=== PATIENT | male | born 1985 | race Caucasian/White ===

== ENCOUNTER 2024-09-11 16:09 | Emergency (ER) | payer MEDICARE, MEDICAID, SELFPAY ==
[2024-09-11 16:10] VITALS: BP 147/81; PULSE 104; RESP 20; TEMP 36.7; O2SAT 92
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
--- NOTE | 2024-09-11 16:30 | DI.RAD_ITS ---
Exam(s) XR KNEE LT 3V AP,LAT,TODD EXAM: XR KNEE LT 3V AP,LAT,TODD CLINICAL HISTORY: Left knee pain. TECHNIQUE: 2D digital imaging was performed of the left knee. Three images were obtained. Merchant ,AP, lateral and PA tunnel views were obtained. COMPARISON: No exams were available for comparison FINDINGS: BONES: No acute fracture is present. No bony destructive lesion is seen. JOINTS: The knee is normally aligned. No joint effusion is seen. No loose body. SOFT TISSUE: Normal. IMPRESSION: No acute fracture or dislocation. DATA REPOSITORY: RADIATION DOSE DELIVERED:
[2024-09-11 16:41] VITALS: PULSE 85; O2SAT 94
[2024-09-11] MEDS: Dexamethasone 4 MG TAB 8 MG PO (16:49)
[2024-09-11 17:30] VITALS: BP 137/78; PULSE 89; RESP 20; TEMP 36.8; O2SAT 98
--- NOTE | 2024-10-07 13:05 | NUR.NOTE ---
Accessed patient chart to print provider note to be faxed to [facility] for billing purposes. Nursing Note:
== END 2024-09-11 17:44 | disposition home or self-care (01) ==
PROVIDERS: Emergency Provider Emergency Medicine
DX: M25.562 Pain in left knee (principal)
CPT/HCPCS: 29505; 73562; 99283; J8540

== ENCOUNTER 2024-09-29 13:07 | Emergency (ER) | payer MEDICARE, MEDICAID, SELFPAY ==
[2024-09-29 13:16] VITALS: BP 149/82; PULSE 78; RESP 18; TEMP 36.8
[2024-09-29 13:18] VITALS: BP 149/82; PULSE 78; RESP 18; TEMP 36.8
--- NOTE | 2024-09-29 14:02 | DI.CT_ITS ---
Exam(s) CT NECK W EXAM: CT NECK W INDICATION: L sided lymph node swelling, sore throat. COMPARISON: No exams were available for comparison TECHNIQUE: FINDINGS: VISUALIZED PARANASAL SINUSES: Polyp or post inflammatory retention cyst in the anterior aspect of the right maxillary sinus noted, measuring 1.4 cm wide by 0.8 cm and not associated with fluid within si nus. No other paranasal sinus findings and there are no mastoid effusions. NASOPHARYNX: Unremarkable ORODENTAL: Upper teeth missing. OROPHARYNX: Abnormal fullness in the left pharyngeal tonsil region with a few calcified tonsilliths. There does not appear to be ring-enhancing abscess in this region but suspect developing left tonsil lar abscess. HYPOPHARYNX: Unremarkable. Valleculae and epiglottis and aryepiglottic folds appear normal. VOCAL CORDS: Unremarkable. No masses evident. Subglottic airway appears unremarkable. THYROID GLAND: Unremarkable. Normal size and no obvious nodules. SALIVARY GLANDS: Unremarkable. No significant findings in the parotid and submandibular glands. LYMPH NODES: There few slightly prominent lymph nodes both sides the neck all measuring less than 1 c m and probably reactive. OTHER: Lower most images of this study reveal no endovascular stent in the thoracic aorta starting in the proximal descending thoracic aorta and extending distally beyond the field of view of this study . In addition, there is a healed fracture of the left clavicle at junction of the mid and lateral third s. Also healed fracture of the medial aspect of the right 2nd rib, posteriorly. Also healed fractur e of the posterolateral aspect of the right 4th rib. VISUALIZED LUNG APICES: No significant findings. IMPRESSION: 1. There is soft tissue swelling in the region the left pharyngeal tonsil and sub tonsillar region. Suspect developing abscess despite fact that there is no ring enhancing abnormality at this time. 2. Slightly enlarged lymph nodes both sides the neck which are probably reactive. 3. Other findings as above Called by myself to ER provider 09/29/2024 at 4:51 p.m. RADIATION DOSE DELIVERED: 518.52mGy.cm Total DLP DATA REPOSITORY: All CT scans at this facility are submitted to the National Radiology Data Registry (NRDR) Dose Index Registry (DIR) with the [employer] (ACR). RADIATION OPTIMIZATION: All CT scans at this facility use at least one of these dose optimization te chniques: automated exposure control; mA and/or kV adjustment per patient size (includes targeted exa ms where dose is matched to clinical indication); or iterative reconstruction.
--- NOTE | 2024-09-29 14:03 | ED.GENADUL_ITS ---
Discharge Plan Discharge Details Chief Complaint: Sorethroat Primary Care Provider: None,None ED Provider: Darcy Victoria Home Meds and New Rx's Prescriptions: No Action buprenorphine-naloxone 8-2 mg tablet, sublingual 3 tab sublingual DAILY lisinopril 20 mg tablet 20 mg PO DAILY HPI General Date/Time Provider Initiated Documentation: 09/29/24 13:22 . HPI Narrative: Miguel is a 39 year old male who presents to the emergency department today for evaluation of worsening left-sided neck swelling, sore throat, and left ear discomfort x 3-4 days. Reports symptoms started with sore throat in the absence of other viral symptoms, recently noticed swelling to the left side of his neck and a swollen lymph node today developed left ear discomfort and painful swallowing. Denies associated fever/chills, dysphonia, difficulty moving his neck, recent trauma, symptoms of illness such as congestion or cough. Former tobacco smoker. Past medical history is significant for HTN. Physical exam remarkable for palpable enlarged and tender L sided submandibular lymph node. Notable area of swelling and erythema to L side of anterior neck. Posterior oropharynx difficult to visualize, however uvula did appear midline and there was no exudate noted on tonsils full ROM of neck. No trismus or muffled voice. TMs translucent, mild erythema to L TM but no bulging or fluid behind TM. D/dx includes but is not limited to: early peritonsillar retropharyngeal abscess, strep throat, viral pharyngitis, neoplasm. No red flags at this time for airway compromise. Patient does not meet sepsis criteria. I independently interpreted the following tests: CBC, CMP, and rapid strep all reassuring. Handoff report given to BASIM Harper, evening DAVID. CT pending. Related Data Home Medications ?Medication ?Instructions ?Recorded ?Confirmed buprenorphine 8 mg-naloxone 2 mg 3 tab sublingual DAILY 09/11/24 09/11/24 sublingual tablet lisinopril 20 mg tablet 20 mg PO DAILY 09/11/24 09/11/24 Allergies Allergy/AdvReac Type Severity Reaction Status Date / Time lidocaine Allergy Severe Hives Verified 09/11/24 16:15 General Stated Complaint: Sorethroat IVANA: 3 Review of Systems Narrative: See HPI Exam Const General: cooperative, healthy appearing, comfortable, no acute distress and well developed Nutritional Appearance: average body habitus and well nourished Orientation: alert and oriented x3 HENMT Head: normal to inspection Ears: hearing grossly normal bilaterally, TM normal on the right and TM abnormal (Very mild erythema, no bulging or fluid) General nose exam: external nose normal Face and sinus: normal facial exam Mouth: oral mucosae normal and tongue normal Throat: posterior oropharynx normal and uvula midline Neck Neck: full ROM, anterior neck swelling (With erythema to the left side of neck) and lymphadenopathy left anterior cervical soft, rubbery and other (1.5 cm diameter, round) Resp Effort & Inspection: normal respiratory effort and able to speak in complete sentences Neuro Cranial Nerves: facial strength normal Course Vital Signs Vital signs: Vital Signs Temperature 36.8 C 09/29/24 13:16 Pulse 78 09/29/24 13:16 Respiratory Rate 18 09/29/24 13:16 Blood Pressure 149/82 H 09/29/24 13:16 Temperature 36.8 C 09/29/24 13:18 Temperature Source Tympanic 09/29/24 13:18 Pulse 78 09/29/24 13:18 Respiratory Rate 18 09/29/24 13:18 Blood Pressure 149/82 H 09/29/24 13:18 Blood Pressure Position Supine 09/29/24 13:18 Medical Decision Making Quality:SDOH Health Related Social Needs: No Data to Display PFSH All Active Problems (Updated 09/11/24 @ 17:20 by Slade Junior MD) Acute pain of left knee (Acute) Social History Smoking/Tobacco Use Status: Current every day Tobacco Type: e-cigarettes Smoking risk assessment performed?: Yes Alcohol Intake: former Drug use: Daily Substance use type: marijuana
[2024-09-29 14:58] LABS: Abs Immature Grans 0.01 10^3/uL (0.0-0.06); Absolute Basophil Count 0.03 10^3/uL (0.0-0.2); Absolute Eosinophil Count 0.34 10^3/uL (0.0-0.7); Absolute Lymphocyte Count 2.77 10^3/uL (1.2-3.4); Absolute Monocyte Count 0.43 10^3/uL (0.1-0.8); Absolute Neutrophil Count 2.88 10^3/uL (1.2-6.7); Basophils % 0.5 %; Eosinophils % 5.3 %; HCT 41.7 % (40.0-50.0); HGB 13.9 g/dL (13.5-17.5); Immature Grans % 0.2 %; Lymphocytes % 42.9 %; MCH 31.5 pg (27.0-33.0); MCHC 33.3 % (32.0-36.0); MCV 95 fL (80-95); MPV 9.3 fL (8.0-11.0); Monocytes % 6.7 %; Neutrophils % 44.4 %; Platelet Count 167 10^3/uL (130-400); RBC 4.41 10^6/uL (4.36-5.78); RDW 13.7 % (11.8-14.1); RDW-SD 48.2 fL; WBC 6.46 10^3/uL (4.4-10.8)
[2024-09-29 15:13] LABS: ALT 37 U/L (16-63); AST 17 U/L (15-37); Alkaline Phosphatase 88 U/L (46-116); Anion Gap 3.8 mmol/L (3-11); BUN 8 mg/dL (7-18); Bilirubin, Total 0.4 mg/dL (0.2-1.0); CO2 30.2 mmol/L (21.0-32.0); CREATININE 0.8 mg/dL (0.70-1.30); Calcium 9.2 mg/dL (8.5-10.1); Chloride 104 mmol/L (98-107); Estimated GFR 114.02 (mL/min/1.73m2); Glucose 98 mg/dL (74-106); Potassium 4.5 mmol/L (3.5-5.1); Sodium 138 mmol/L (136-145); Total Protein 7.5 g/dL (6.4-8.2)
[2024-09-29] MEDS: Normal Saline - Diluent 50 ML VIAL IJ (16:14)
[2024-09-29] MEDS: Omnipaque 350 MG/ML 100 ML BTL IJ (16:15)
--- NOTE | 2024-09-29 16:57 | W.EDPROG ---
Date of service: 09/29/24 Time of Service: 16:57 Medical Decision Making This dictation utilizes [id number] dictation software and may contain unedited grammatical errors. Patient seen in signout from Darcy Haley NP, please see her complete note. Essentially this 39 y/o M presents to the ED for left-sided throat and neck pain for 3 to 4 days with submandibular swelling noted by prior provider on exam awaiting CT neck with contrast, labs are reassuring without major leukocytosis, CMP benign, rapid strep negative, patient has diffuse poor dentition, no vocal changes or excessive drooling or neck stiffness noted by prior provider. Patients' medical history: [ ]. Family and social history: [ ]. Pertinent exam findings / vital signs include [ ]. Differential / pathologies of concern include [ ]. Diagnostic studies of: -Reviewed prior labs - all negative for actionable abnormalities as seen below. -CT neck results and spoke with radiologist Dr. Melgar- suspects phlegmon forming Interventions of: -Will load with IV Unasyn & Dexamethasone, Rx for Augmentin, Rx for chlorhexidine mouth rinse. ED Course/Assessment/Plan: 39-year-old male seen for left tonsillar swelling and a sore throat for the past 3 to [address], CT shows questionable developing abscess or phlegmonous tonsillitis but no overt abscess at this time, I counseled the patient on course of Augmentin, loaded him on IV Unasyn and dexamethasone, counseled him extensively on red flags for return he verbalized understanding, I did prescribe him chlorhexidine mouth rinse as well and recommend salt water gargles and therapeutic dosing of Tylenol and ibuprofen. Findings not consistent with [employer]/RPA, nuchal rigidity, sialoadenitis or salivary obstruction. Disposition of Phlegmonous Tonsillitis Patient verbalized understanding of the plan and return to ED criteria and engaged in shared decision making. Medical Records Medical records reviewed: Yes I reviewed the patient's medical records. Imaging Data Radiologic Study: Attestation: I personally reviewed and interpreted this imaging study as follows: Imaging: CT Scan Radiologist's impression: EXAM: CT NECK W INDICATION: L sided lymph node swelling, sore throat. COMPARISON: No exams were available for comparison TECHNIQUE: FINDINGS: VISUALIZED PARANASAL SINUSES: Polyp or post inflammatory retention cyst in the anterior aspect of the right maxillary sinus noted, measuring 1.4 cm wide by 0.8 cm and not associated with fluid within sinus. No other paranasal sinus findings and there are no mastoid effusions. NASOPHARYNX: Unremarkable ORODENTAL: Upper teeth missing. OROPHARYNX: Abnormal fullness in the left pharyngeal tonsil region with a few calcified tonsilliths. There does not appear to be ring-enhancing abscess in this region but suspect developing left tonsillar abscess. HYPOPHARYNX: Unremarkable. Valleculae and epiglottis and aryepiglottic folds appear normal. VOCAL CORDS: Unremarkable. No masses evident. Subglottic airway appears unremarkable. THYROID GLAND: Unremarkable. Normal size and no obvious nodules. SALIVARY GLANDS: Unremarkable. No significant findings in the parotid and submandibular glands. LYMPH NODES: There few slightly prominent lymph nodes both sides the neck all measuring less than 1 cm and probably reactive. OTHER: Lower most images of this study reveal no endovascular stent in the thoracic aorta starting in the proximal descending thoracic aorta and extending distally beyond the field of view of this study. In addition, there is a healed fracture of the left clavicle at junction of the mid and lateral thirds. Also healed fracture of the medial aspect of the right 2nd rib, posteriorly. Also healed fracture of the posterolateral aspect of the right 4th rib. VISUALIZED LUNG APICES: No significant findings. IMPRESSION: 1. There is soft tissue swelling in the region the left pharyngeal tonsil and sub tonsillar region. Suspect developing abscess despite fact that there is no ring enhancing abnormality at this time. 2. Slightly enlarged lymph nodes both sides the neck which are probably reactive. 3. Other findings as above Called by myself to ER provider 09/29/2024 at 4:51 p.m. Lab Data Lab results reviewed: Yes I reviewed the patient's lab results. Lab results narrative: Rapid Strep negative Labs: 09/29/24 14:05 Pharynx Group A Streptococcus Culture - Pending Laboratory Tests Range/Units 09/29/24 14:51 WBC (4.4-10.8) 10^3/uL 6.46 RBC (4.36-5.78) 10^6/uL 4.41 Hgb (13.5-17.5) g/dL 13.9 Hct (40.0-50.0) % 41.7 MCV (80-95) fL 95 MCH (27.0-33.0) pg 31.5 MCHC (32.0-36.0) % 33.3 RDW (11.8-14.1) % 13.7 Plt Count (130-400) 10^3/uL 167 MPV (8.0-11.0) fL 9.3 Immature Gran % % 0.2 Neutrophils % % 44.4 Lymphocytes % % 42.9 Monocytes % % 6.7 Eosinophils % % 5.3 Basophils % % 0.5 Nucleated RBC % (0.0-0.3) % 0.0 Absolute Neutrophils (1.2-6.7) 10^3/uL 2.88 Absolute Lymphocytes (1.2-3.4) 10^3/uL 2.77 Absolute Monocytes (0.1-0.8) 10^3/uL 0.43 Absolute Eosinophils (0.0-0.7) 10^3/uL 0.34 Absolute Basophils (0.0-0.2) 10^3/uL 0.03 Sodium (136-145) mmol/L 138 Potassium (3.5-5.1) mmol/L 4.5 Chloride (98-107) mmol/L 104 Carbon Dioxide (21.0-32.0) mmol/L 30.2 Anion Gap (3-11) mmol/L 3.8 BUN (7-18) mg/dL 8 Creatinine (0.70-1.30) mg/dL 0.8 Est GFR (CKD-EPI 2020) (mL/min/1.73m2) 114.02 Glucose (74-106) mg/dL 98 Calcium (8.5-10.1) mg/dL 9.2 Total Bilirubin (0.2-1.0) mg/dL 0.4 AST (15-37) U/L 17 ALT (16-63) U/L 37 Alkaline Phosphatase (46-116) U/L 88 Total Protein (6.4-8.2) g/dL 7.5 Albumin (3.4-5.0) g/dL 4.0 Quality:SDOH Health Related Social Needs: No Data to Display Discharge Plan Disposition Patient Disposition: Home Condition: Stable Discharge Details Clinical Impression: Phlegmonous tonsillitis Primary Care Provider: None,None ED Provider: Juno Peck Home Meds and New Rx's Prescriptions: New amoxicillin-pot clavulanate 875-125 mg tablet 1 tab PO BID 14 Days Qty: 28 0RF chlorhexidine gluconate 0.12 % mouthwash 15 ml mucous membrane BID Qty: 1893 0RF Rx Instructions: swish and spit with 15mL by mouth twice per day Continued buprenorphine-naloxone 8-2 mg tablet, sublingual 3 tab sublingual DAILY lisinopril 20 mg tablet 20 mg PO DAILY Discharge Instructions Instructions: Peritonsillar Abscess, Adult, Amoxicillin and Clavulanate, Chlorhexidine Gluconate (Oral), Sore Throat, Adult ED Additional Instructions: You were seen in the emergency department for your left tonsillar infection, there is suspicion for a possibility of developing peritonsillar abscess which can be a surgical emergency. There is no abscess at this time though. I have loaded you with IV antibiotics, I have sent a prescription to [facility] in [place], start this oral antibiotic tonight before bed. We also gave you a dose of IV steroids to help with inflammation. Please use therapeutic dosing of Tylenol (acetamenophen) & Advil (ibuprofen) in an alternating fashion as follows: Take 1000mg of Tylenol every 6 hours without missing doses- that is 4 times per day. [facility] in between the Tylenol dosings, take 400-600mg of Advil also on a 6 hour schedule, that is also 4 times per day. The daily maximum dosing of Tylenol is 4000mg, and the daily maximum dosing of Advil is 2400mg. This is safe to do for weeks. Please note that some common cold medications & prescription pain medications may contain acetamenophen and you need to read OTC drug labels and factor that in to maximum daily dosings. Please perform salt water gargles with warm salt water at least 3 times per day. Emergent signs to watch for include worsening neck stiffness, severe vocal changes and hoarseness or hot potato voice, excessive drooling and inability to manage your saliva, displacement of the uvula away from your left tonsil at the back of your throat, please return immediately for any of the symptoms. Referrals: [facility] [Provider Group] Discharge Data Discharge Date/Time-TO BE ENTERED AT DEPARTURE: 09/29/24 18:01
[2024-09-29] MEDS: AMPICILLIN/SULBACTAM 3 GM in Normal Saline 100 ML IVPB (17:16)
[2024-09-29] MEDS: Acetaminophen 500 MG TAB 1000 MG PO (17:17)
[2024-09-29] MEDS: Ibuprofen 400 MG TAB PO (17:17)
[2024-09-29] MEDS: Dexamethasone 10 MG/ML VIAL IVP (17:17)
[2024-09-29 17:25] VITALS: BP 130/72; PULSE 70; RESP 16; O2SAT 97
[2024-09-29 17:59] VITALS: BP 137/79; PULSE 69; RESP 16; O2SAT 95
== END 2024-09-29 18:01 | disposition home or self-care (01) ==
PROVIDERS: Nurse Practitioner Family; Emergency Provider Physician Assistant
DX: J03.90 Acute tonsillitis, unspecified (principal)
CPT/HCPCS: 99284; 99285; 87880; 96375; 00123; 70491; 80053; 96365; 85025; 87081; J0295; J1100; J3490

== ENCOUNTER 2024-11-11 12:08 | Emergency (ER) | payer MEDICARE, MEDICAID, SELFPAY ==
[2024-11-11] VITALS (27 sets, daily range): BP systolic 93–126; BP diastolic 71–95; PULSE 64–106; RESP 11–20; TEMP 36.6; O2SAT 91–98
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
[2024-11-11 13:06] LABS: Abs Immature Grans 0.01 10^3/uL (0.0-0.06); Absolute Basophil Count 0.03 10^3/uL (0.0-0.2); Absolute Eosinophil Count 0.37 10^3/uL (0.0-0.7); Absolute Lymphocyte Count 2.54 10^3/uL (1.2-3.4); Absolute Monocyte Count 0.39 10^3/uL (0.1-0.8); Absolute Neutrophil Count 2.51 10^3/uL (1.2-6.7); Basophils % 0.5 %; Eosinophils % 6.3 %; HCT 39.2 % (40.0-50.0); HGB 13.6 g/dL (13.5-17.5); Immature Grans % 0.2 %; Lymphocytes % 43.4 %; MCH 31.9 pg (27.0-33.0); MCHC 34.7 % (32.0-36.0); MCV 92 fL (80-95); MPV 9.6 fL (8.0-11.0); Monocytes % 6.7 %; Neutrophils % 42.9 %; Platelet Count 165 10^3/uL (130-400); RBC 4.26 10^6/uL (4.36-5.78); RDW 12.9 % (11.8-14.1); RDW-SD 43.5 fL; WBC 5.85 10^3/uL (4.4-10.8)
[2024-11-11 13:23] LABS: ALT 47 U/L (16-63); AST 30 U/L (15-37); Albumin 4.2 g/dL (3.4-5.0); Alkaline Phosphatase 79 U/L (46-116); BUN 13 mg/dL (7-18); Bilirubin, Total 0.4 mg/dL (0.2-1.0); CREATININE 0.9 mg/dL (0.70-1.30); Calcium 8.7 mg/dL (8.5-10.1); Chloride 101 mmol/L (98-107); Estimated GFR 110.04 (mL/min/1.73m2); Glucose 106 mg/dL (74-106); Magnesium 1.8 mg/dL (1.8-2.4); Potassium 4.1 mmol/L (3.5-5.1); Sodium 136 mmol/L (136-145); Total Protein 7.4 g/dL (6.4-8.2)
--- NOTE | 2024-11-11 13:46 | DI.CT_ITS ---
Exam(s) CT ABDOMEN PELVIS CTA EXAM: CT ABDOMEN PELVIS CTA CLINICAL HISTORY: GI Bleed. TECHNIQUE: Imaging Protocol: Axial computed tomography images with coronal and sagittal reformatted images were created and reviewed CONTRAST MATERIAL: Intravenous: Omnipaque 350 Contrast volume:100 ml Oral: None COMPARISON: No exams were available for comparison FINDINGS: Uppermost images reveal no pleural effusions nor nodular infiltrates in the lung bases. AORTA: The inferior aspect of a stent device in the lower thoracic aorta is noted.There is no evidenc e of abdominal aortic aneurysm. No evidence of abdominal aortic dissection nor significant stenosis. Retroaortic left renal vein is noted. Celiac and SMA arteries are patent without significant steno sis. The inferior mesenteric artery is patent. There is no significant stenosis in the renal arteri es. No significant atherosclerotic narrowing nor dissection of the iliac arteries and no aneurysmal dilatation of these vessels nor of the common femoral arteries bilaterally. ABDOMEN: GASTROINTESTINAL: There is no evidence of bowel obstruction, free air, nor abscess. No evidence of a ppendicitis nor acute diverticulitis. There is no evidence of intraluminal extravasation of injected intravenous contrast to suggest an acute bleeding site. There is no ascites. LIVER: Somewhat hypodense implying steatosis. There no discrete focal hepatic lesions identified. GALLBLADDER/BILIARY: No obvious gallbladder pathology. CBD is not dilated. PANCREAS: No evidence of pancreatic mass nor dilatation of the pancreatic duct. SPLEEN: Spleen is not enlarged. There are no intrasplenic lesions. Splenic and portal veins are boyle nt. ADRENALS: No significant adrenal masses. KIDNEYS: There is a benign cyst in the posterior cortex of the right kidney measuring 2 cm which does not require further workup. There are no solid renal masses nor calculi nor hydronephrosis on eithe r side. No hydroureter. There is no obvious abnormality in the nondistended urinary bladder.. ABDOMINAL AORTA: See above LYMPH NODES: There is no retroperitoneal nor para-aortic adenopathy. No obvious mesenteric masses. ABDOMINAL WALL: No evidence of significant anterior abdominal wall hernia. GI: There is no evidence of bowel obstruction, free air, nor abscess. PELVIS: LYMPH NODES: There is no intrapelvic nor inguinal adenopathy. GI: No evidence of appendicitis.No evidence of sigmoid diverticulitis. URINARY BLADDER: No calculi nor masses evident REPRODUCTIVE: Prostate size is normal. Seminal vesicles unremarkable. OSSEOUS: No significant osseous lesions. There is a wedge compression fracture of T11 which does not have an acute appearance. No canal compromise at this level seen. No acute fractures. Sacroiliac joints unremarkable. IMPRESSION: 1. There is no demonstration of acute bleeding site in the gut on this triple phase CTA study. Also no ischemic appearing bowel loops. 2. No evidence of abdominal aortic aneurysm nor aneurysmal dilatation of the iliac arteries and there is also no significant stenosis in these vessels. 3. No evidence of bowel obstruction, free air, nor abscess and there is no ascites. 4. Incidentally noted on the uppermost images is the lower most aspect of a stent graft in the descen ding thoracic aorta. Only a small part of this stent graft is included in the field of view of this abdominal study. Findings discussed by phone with ER physician 11/11/2024 at 3:02 p.m. RADIATION DOSE DELIVERED: Total DLP DATA REPOSITORY: All CT scans at this facility are submitted to the National Radiology Data Registry (NRDR) Dose Index Registry (DIR) with the [employer] (ACR). RADIATION OPTIMIZATION: All CT scans at this facility use at least one of these dose optimization te chniques: automated exposure control; mA and/or kV adjustment per patient size (includes targeted exa ms where dose is matched to clinical indication); or iterative reconstruction.
[2024-11-11] MEDS: Pantoprazole 40 MG VIAL 80 MG IVP (13:55)
[2024-11-11] MEDS: Omnipaque 350 MG/ML 100 ML BTL IJ (14:27)
[2024-11-11] MEDS: Normal Saline - Diluent 50 ML VIAL IJ (14:33)
== END 2024-11-11 15:30 | disposition left against medical advice (07) ==
PROVIDERS: Emergency Provider Emergency Medicine
DX: K92.1 Melena (principal)
CPT/HCPCS: 99285; 99284; 36415; 96374; 80053; 86850; 86900; 86901; 74174; 83735; 85025; J2470; J3490

== ENCOUNTER 2025-03-21 16:58 | Emergency (ER) | payer MEDICARE, SELFPAY ==
[2025-03-21 17:00] VITALS: BP 120/91; PULSE 105; RESP 18; TEMP 35.4; O2SAT 96
[2025-03-21 17:33] LABS: Glucose Negative (Negative)
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
[2025-03-21] MEDS: Acetaminophen 500 MG TAB 1000 MG PO (18:01)
[2025-03-21] MEDS: Methocarbamol 500 MG TAB 2000 MG PO (18:02)
[2025-03-21 18:09] VITALS: BP 123/89; PULSE 83; RESP 20; O2SAT 97
== END 2025-03-21 18:10 | disposition home or self-care (01) ==
PROVIDERS: Emergency Provider Nurse Practitioner Family
DX: M54.50 Low back pain, unspecified (principal)
CPT/HCPCS: 99283 ×2; 81003

== ENCOUNTER 2025-04-04 14:42 | Emergency (ER) | payer MEDICARE, SELFPAY ==
[2025-04-04 15:07] VITALS: BP 135/85; PULSE 76; RESP 20; TEMP 36; O2SAT 96
== END 2025-04-04 16:00 | disposition left against medical advice (07) ==
DX: Z53.21 Procedure and treatment not carried out due to patient leaving prior to being seen by health care provider (principal)

== ENCOUNTER 2025-04-07 01:26 | Outpatient (CLI) | payer MEDICARE, SELFPAY ==
--- NOTE | 2025-04-07 | DI.RAD_ITS ---
Exam(s) XR KNEE LT 3V AP,LAT,TODD EXAM: XR KNEE LT 3V AP,LAT,TODD CLINICAL HISTORY: lt knee pain, M25.562. TECHNIQUE: 2D digital imaging was performed of the left knee. Four images were obtained. AP, lateral and PA tunnel views were obtained. COMPARISON: CR XR KNEE LT 3V AP,LAT,TODD from 09/11/2024 FINDINGS: BONES: No acute fracture is present. No bony destructive lesion is seen. JOINTS: The knee is normally aligned. No joint effusion is seen. No loose body. SOFT TISSUE: Normal. IMPRESSION: There is no acute abnormality. DATA REPOSITORY: RADIATION DOSE DELIVERED:
--- NOTE | 2025-04-07 | DI.US_ITS ---
Exam(s) US SOFT TISS ABD WALL/LOW BACK EXAM: US SOFT TISS ABD WALL/LOW BACK CLINICAL HISTORY: R22.2 LOCALIZED SWELLING, MASS, LUMP TRUNK. TECHNIQUE: Ultrasound was performed using standard protocol. COMPARISON: CT CT ABDOMEN PELVIS CTA from 11/11/2024 FINDINGS: Dedicated ultrasound exam of the area of concern on the anterior upper abdomen was performed. Submitted images do not reveal evidence of solid or significant cystic lesions. Also no obvious lipoma. IMPRESSION: No significant ultrasound findings DATA REPOSITORY:
== END 2025-04-07 01:46 ==
LOC: DI 01:26
PROVIDERS: Visit Provider Nurse Practitioner Family
DX: M25.562 Pain in left knee (principal); R22.2 Localized swelling, mass and lump, trunk
CPT/HCPCS: 73562; 76705